=== PATIENT | male | born 1955 | race Caucasian/White ===

== ENCOUNTER 2020-10-08 19:05 | Inpatient (IN) | payer MEDICARE, OTHER ==
[~2020-10-08] VITALS: Ht 180.3 cm; Wt 132.8 kg
[2020-10-08] MEDS ORDERED: LIPITOR40 M1 PO (20:01)
[2020-10-08 20:02] LABS: IMMATURE GRANULOCYTES 0.5 % (0.0-5.0); MEAN CELL VOLUME 90.6 fL CALC (80.0-100.0); MEAN CORPUSCULAR HGB 28.5 pG CALC (26.0-32.0); MEAN CORPUSCULAR HGB CONC 31.4 g/dL CAL (32.0-36.0); NEUT# 3.28 thou/uL (1.82-7.42); RED BLOOD COUNT 4.46 mill/uL (4.70-6.10); RED CELL DISTRI WIDTH 16.2 % (11.5-15.5)
[2020-10-08] MEDS ORDERED: HYDROCHLOROT25 MG PO (20:03)
[2020-10-08] MEDS ORDERED: HUMALOG KW100 UNIT/M (20:03)
[2020-10-08] MEDS ORDERED: INVOKANA300 MG PO (20:04)
[2020-10-08] MEDS ORDERED: ISOSORB MONO30 MG PO (20:05)
[2020-10-08] MEDS ORDERED: LANTUS SOL100 UNIT/M SC (20:06)
[2020-10-08 20:07] LABS: ALBUMIN 3.8 g/dL (3.2-5.0); ALKALINE PHOSPHATASE 203 u/l (38-126); AMYLASE 65 u/l (30-110); ANION GAP 10 (6-22 (CALC)); BUN 19 mg/dL (8-23); BUN/CREATININE RATIO 22 (12-20 (CALC)); CARBON DIOXIDE 25 mmol/l (22-30); CHLORIDE 111 mmol/l (95-108); CREATININE 0.9 mg/dL (0.7-1.3); GFR > 60 ML/MIN (>=60 (CALC)); GFR FOR AFR.AMER. > 60 ML/MIN (>=60 (CALC)); LIPASE 142 u/l (23-300); POTASSIUM 4.2 mmol/l (3.5-5.1); SGOT/AST 64 u/l (19-48); SODIUM 141 mmol/l (137-146); TOTAL PROTEIN 7.4 g/dL (6.3-8.2)
[2020-10-08] MEDS ORDERED: ZOLPIDEM10 MG PO (20:07)
[2020-10-08] MEDS ORDERED: TOPROL XL50 MG PO (20:07)
[2020-10-08] MEDS ORDERED: OMEPRAZOLE DR40 MG PO (20:08)
[2020-10-08] MEDS ORDERED: DIOVAN160 MG PO (20:08)
[2020-10-08 20:09] LABS: HEMATOCRIT 40.4 % (39.0-50.0); HEMOGLOBIN 12.7 g/dl (14.0-18.0)
[2020-10-08 20:48] LABS: URINE BILIRUBIN - DIPSTICK NEGATIVE (NEGATIVE); URINE BLOOD DIPSTICK NEGATIVE (NEGATIVE); URINE COLOR YELLOW; URINE GLUCOSE - DIPSTICK >=1000 mg/dL (NEGATIVE); URINE KETONE TRACE mg/dL (NEGATIVE); URINE LEUK ESTERASE NEGATIVE (NEGATIVE); URINE NITRITE - DIPSTICK NEGATIVE (Negative); URINE PH 5.5 (4.5-8.0); URINE PROTEIN - DIPSTICK NEGATIVE (NEG-TRACE); URINE SPECIFIC GRAVITY 1.015; URINE UROBILINOGEN - DIPSTICK 0.2 E.U./dL (0.2)
[2020-10-09 02:18] VITALS: BP 173/72
[2020-10-09 04:20] VITALS: BP 159/73
[2020-10-09 07:59] VITALS: BP 137/54
[2020-10-09 11:16] VITALS: BP 140/63
[2020-10-09 14:34] VITALS: BP 131/61
[2020-10-10 04:00] VITALS: BP 132/64
[2020-10-10 06:18] LABS: HEMOGLOBIN 11.9 g/dl (14.0-18.0); IMMATURE GRANULOCYTES 0.4 % (0.0-5.0); MEAN CELL VOLUME 92.6 fL CALC (80.0-100.0); MEAN CORPUSCULAR HGB 28.3 pG CALC (26.0-32.0); MEAN CORPUSCULAR HGB CONC 30.5 g/dL CAL (32.0-36.0); NEUT# 3.12 thou/uL (1.82-7.42); RED BLOOD COUNT 4.21 mill/uL (4.70-6.10); RED CELL DISTRI WIDTH 16.3 % (11.5-15.5)
[2020-10-10 06:40] LABS: ALBUMIN 3.1 g/dL (3.2-5.0); ALKALINE PHOSPHATASE 121 u/l (38-126); ANION GAP 9 (6-22 (CALC)); BILIRUBIN, TOTAL 1.4 mg/dL (0.0-1.4); BUN 16 mg/dL (8-23); BUN/CREATININE RATIO 19 (12-20 (CALC)); CARBON DIOXIDE 26 mmol/l (22-30); CHLORIDE 109 mmol/l (95-108); CREATININE 0.8 mg/dL (0.7-1.3); GFR > 60 ML/MIN (>=60 (CALC)); GFR FOR AFR.AMER. > 60 ML/MIN (>=60 (CALC)); POTASSIUM 3.9 mmol/l (3.5-5.1); SGOT/AST 46 u/l (19-48); SODIUM 139 mmol/l (137-146); TOTAL PROTEIN 6.1 g/dL (6.3-8.2)
[2020-10-10 07:57] VITALS: BP 125/58
[2020-10-10 15:28] VITALS: BP 120/49
[2020-10-10 20:00] VITALS: BP 121/50
[2020-10-11 04:00] VITALS: BP 108/52
[2020-10-11 05:42] LABS: HEMATOCRIT 35.1 % (39.0-50.0); HEMOGLOBIN 10.7 g/dl (14.0-18.0); IMMATURE GRANULOCYTES 0.3 % (0.0-5.0); MEAN CELL VOLUME 93.4 fL CALC (80.0-100.0); MEAN CORPUSCULAR HGB 28.5 pG CALC (26.0-32.0); MEAN CORPUSCULAR HGB CONC 30.5 g/dL CAL (32.0-36.0); NEUT# 2.61 thou/uL (1.82-7.42); RED BLOOD COUNT 3.76 mill/uL (4.70-6.10)
[2020-10-11 06:05] LABS: ALBUMIN 2.8 g/dL (3.2-5.0); ALKALINE PHOSPHATASE 107 u/l (38-126); ANION GAP 7 (6-22 (CALC)); BILIRUBIN, TOTAL 1.1 mg/dL (0.0-1.4); BUN 17 mg/dL (8-23); BUN/CREATININE RATIO 21 (12-20 (CALC)); CARBON DIOXIDE 26 mmol/l (22-30); CHLORIDE 107 mmol/l (95-108); CREATININE 0.8 mg/dL (0.7-1.3); GFR > 60 ML/MIN (>=60 (CALC)); GFR FOR AFR.AMER. > 60 ML/MIN (>=60 (CALC)); POTASSIUM 3.6 mmol/l (3.5-5.1); SGOT/AST 43 u/l (19-48); SODIUM 137 mmol/l (137-146); TOTAL PROTEIN 5.6 g/dL (6.3-8.2)
[2020-10-11 07:45] VITALS: BP 150/70
[2020-10-11 15:10] VITALS: BP 117/57
[2020-10-11 19:42] VITALS: BP 122/57
[2020-10-12 03:56] VITALS: BP 126/60
[2020-10-12 07:59] VITALS: BP 132/59
[2020-10-12 14:55] VITALS: BP 117/51
== END 2020-10-12 18:00 | disposition short-term general hospital (02) | DRG 446 ==
LOC: ED 19:05 → ED-I 23:57 → ED 10-09 00:48 → MS2 10-09 00:49
PROVIDERS: Emergency Medicine; Nurse Practitioner; ADMIT Internal Medicine; ATTEND Internal Medicine
DX: K80.00 Calculus of gallbladder with acute cholecystitis without obstruction (principal); D69.6 Thrombocytopenia, unspecified; K74.60 Unspecified cirrhosis of liver; R16.1 Splenomegaly, not elsewhere classified; I10 Essential (primary) hypertension; E11.9 Type 2 diabetes mellitus without complications; I25.10 Atherosclerotic heart disease of native coronary artery without angina pectoris; E78.5 Hyperlipidemia, unspecified; K21.9 Gastro-esophageal reflux disease without esophagitis; Z79.4 Long term (current) use of insulin; Z95.5 Presence of coronary angioplasty implant and graft; Z20.822 Contact with and (suspected) exposure to COVID-19
CPT/HCPCS: J1610; Q9967; S0164

== ENCOUNTER 2020-12-31 | Emergency (ER) | payer MEDICARE, OTHER ==
[~2020-12-31] MED LIST: DIOVAN160 MG PO; HUMALOG KW100 UNIT/M; HYDROCHLOROT25 MG PO; INVOKANA300 MG PO; ISOSORB MONO30 MG PO; LANTUS SOL100 UNIT/M SC; LIPITOR40 M1 PO; OMEPRAZOLE DR40 MG PO; TOPROL XL50 MG PO; ZOLPIDEM10 MG PO
[2020-12-31] MEDS ORDERED: LORTAB 1010 MG PO (10:48)
[2020-12-31] MEDS ORDERED: CYCLOBENZAPRINE10 MG PO (10:48)
== END 2020-12-31 11:00 | disposition home or self-care (01) ==
DX: M47.816 Spondylosis without myelopathy or radiculopathy, lumbar region (principal); I10 Essential (primary) hypertension; E11.9 Type 2 diabetes mellitus without complications; I25.10 Atherosclerotic heart disease of native coronary artery without angina pectoris; Z79.4 Long term (current) use of insulin

== ENCOUNTER 2023-10-10 08:08 | Emergency (ER) | payer MEDICARE, OTHER ==
[~2023-10-10] VITALS: Ht 177.8 cm; Wt 119.2 kg
[2023-10-10] VITALS (24 sets, daily range): BP systolic 113–164; BP diastolic 50–69
[~2023-10-10 08:08] MED LIST changes: +ADVANCED FIBER COMPL PO; +ALDACTONE25 MG PO; +AMBIEN10 MG PO; +CONSTULOSE10 GM/15 M PO; +CRESTOR20 MG PO; +CYCLOBENZAPRINE10 MG PO; +DEMADEX20 MG PO; +LORTAB 1010 MG PO; +MGO PO; +POT CHLORIDE10 ME5 PO; +PROBIOTI2; +SODIUM BICARBI650 MG PO; +TOPROL XL25 M1 PO
[2023-10-10 08:37] LABS: BASO% 0.5 % (0-3); EOS% 7.6 % (0-8); HEMATOCRIT 36.2 % (39.0-50.0); HEMOGLOBIN 11.7 g/dl (14.0-18.0); IMMATURE GRANULOCYTES 0.3 % (0.0-5.0); LYMPH% 10.9 % (15-41); MEAN CORPUSCULAR HGB 27.5 pG CALC (26.0-32.0); MEAN CORPUSCULAR HGB CONC 32.3 g/dL CAL (32.0-36.0); MONO% 9.4 % (2-13); NEUT# 2.74 thou/uL (1.82-7.42); NEUT% 71.3 % (42-76); RED BLOOD COUNT 4.26 mill/uL (4.70-6.10); RED CELL DISTRI WIDTH 20.1 % (11.5-15.5)
[2023-10-10 08:49] LABS: ALBUMIN 2.7 g/dL (3.2-5.0); ALKALINE PHOSPHATASE 309 u/l (38-126); ANION GAP 8 (6-22 (CALC)); BILIRUBIN, TOTAL 1.7 mg/dL (0.2-1.3); BUN 20 mg/dL (8-23); BUN/CREATININE RATIO 17 (12-20 (CALC)); CARBON DIOXIDE 24 mmol/l (22-30); CHLORIDE 108 mmol/l (95-108); CPK 106 u/l (55-170); CREATININE 1.2 mg/dL (0.7-1.3); ETHYL ALCOHOL 0 mg/dl (0-30); GFR FOR AFR.AMER. > 60 ML/MIN (>=60 (CALC)); GFR OTHER RACES 60 ML/MIN (>=60 (CALC)); LIPASE 239 u/l (23-300); MAGNESIUM 2.6 mg/dL (1.6-2.3); SGOT/AST 73 u/l (19-48); SODIUM 136 mmol/l (137-146); TOTAL PROTEIN 6.3 g/dL (6.3-8.2)
[2023-10-10 08:50] LABS: INTERNATIONAL NORMALIZED RATIO 1.3 RATIO (0.7-1.3); PROTHROMBIN TIME 12.7 SECONDS (9.0-12.5)
[2023-10-10 12:04] LABS: URINE BILIRUBIN - DIPSTICK Negative (NEGATIVE); URINE BLOOD DIPSTICK Negative (NEGATIVE); URINE GLUCOSE - DIPSTICK 500 mg/dL (NEGATIVE); URINE KETONE Negative (NEGATIVE); URINE LEUK ESTERASE Negative (NEGATIVE); URINE NITRITE - DIPSTICK Negative (Negative); URINE PH 5.5 (4.5-8.0); URINE PROTEIN - DIPSTICK Negative (NEG-TRACE); URINE SPECIFIC GRAVITY 1.015; URINE UROBILINOGEN - DIPSTICK 0.2 E.U./dL (0.2)
[2023-10-10 12:06] LABS: URINE COLOR Yellow
--- NOTE | 2023-10-11 13:59 | NUR ---
Preliminary blood culture result shows gram positive cocci on 2/4 samples. Results was called and faxed to Taniya, nurse in charge of the patient on [facility].
== END 2023-10-10 14:15 ==
LOC: ED 08:08
PROVIDERS: Family Medicine
PROC: 05HM33Z Insertion of Infusion Device into Right Internal Jugular Vein, Percutaneous Approach (ICD-10-PCS; principal; 2023-10-10)
PROC: 0T9B70Z Drainage of Bladder with Drainage Device, Via Natural or Artificial Opening (ICD-10-PCS; 2023-10-10)
PROC: 0BH17EZ Insertion of Endotracheal Airway into Trachea, Via Natural or Artificial Opening (ICD-10-PCS; 2023-10-10)
PROC: 5A1935Z Respiratory Ventilation, Less than 24 Consecutive Hours (ICD-10-PCS; 2023-10-10)
DX: K76.82 Hepatic encephalopathy (principal); J18.9 Pneumonia, unspecified organism; I85.01 Esophageal varices with bleeding; I10 Essential (primary) hypertension; K21.9 Gastro-esophageal reflux disease without esophagitis; E78.5 Hyperlipidemia, unspecified; C22.9 Malignant neoplasm of liver, not specified as primary or secondary; Z95.5 Presence of coronary angioplasty implant and graft; E11.9 Type 2 diabetes mellitus without complications; I25.10 Atherosclerotic heart disease of native coronary artery without angina pectoris; Z79.4 Long term (current) use of insulin; Z20.822 Contact with and (suspected) exposure to COVID-19
CPT/HCPCS: J2354; Q9967; S0164

== ENCOUNTER 2024-03-19 16:03 | Observation (INO) | payer MEDICARE, OTHER ==
[~2024-03-19] VITALS: Ht 177.8 cm; Wt 104.6 kg
[2024-03-19] VITALS (31 sets, daily range): BP systolic 74–109; BP diastolic 27–57
--- NOTE | 2024-03-19 16:17 | NUR ---
PATIENT TO ROOM 9 VIA WHEELCHAIR
[2024-03-19] MEDS ORDERED: SODIUM CHLORIDE 0.9% 500 ML IV ONE (16:25)
--- NOTE | 2024-03-19 16:30 | NUR ---
PATIENT ARRIVED BY POV. PATIENT HAS C/O WEAKNESS AND FATIGUE. PARATHENTISIS SCHEDUALED FOR TOMMOROW, HOWEVER PATIENT WAS FEELING TO BAD TO WAIT. IV ACCESS STABLISHED. DR. BRIDGES AT THE BEDSIDE.
[2024-03-19 16:49] LABS: BASO% 0.2 % (0-3); EOS% 0.7 % (0-8); HEMATOCRIT 37.6 % (39.0-50.0); HEMOGLOBIN 12.2 g/dl (14.0-18.0); IMMATURE GRANULOCYTES 0.5 % (0.0-5.0); LYMPH% 3.3 % (15-41); MEAN CORPUSCULAR HGB 32.7 pG CALC (26.0-32.0); MEAN CORPUSCULAR HGB CONC 32.4 g/dL CAL (32.0-36.0); MONO% 6.7 % (2-13); NEUT# 7.28 thou/uL (1.82-7.42); NEUT% 88.6 % (42-76); RED BLOOD COUNT 3.73 mill/uL (4.70-6.10); RED CELL DISTRI WIDTH 18.4 % (11.5-15.5)
[2024-03-19 16:52] LABS: MEAN CELL VOLUME 100.8 fL CALC (80.0-100.0)
[2024-03-19 16:59] LABS: INTERNATIONAL NORMALIZED RATIO 1.5 RATIO (0.7-1.3)
[2024-03-19] MEDS ORDERED: ZINC50 M1 PO (17:00)
[2024-03-19 17:01] LABS: PROTHROMBIN TIME 13.6 SECONDS (9.0-12.5)
[2024-03-19 17:02] LABS: ALBUMIN 2.7 g/dL (3.2-5.0); BILIRUBIN, TOTAL 6.2 mg/dL (0.2-1.3); CREATININE 2.3 mg/dL (0.7-1.3); TOTAL PROTEIN 6.3 g/dL (6.3-8.2)
[2024-03-19] MEDS ORDERED: CALCIUM GLUCONATE 2 GM in SODIUM CHLORIDE 0.9% 100 ML IV ONE (17:10)
[2024-03-19] MEDS ORDERED: CALCIUM GLUCONATE 1 GM in SODIUM CHLORIDE 0.9% 50 ML IV ONE (17:10)
[2024-03-19] MEDS ORDERED: INSULIN REGULAR (HUMAN) 100 UNIT/ML INJ IV ONE (17:10)
[2024-03-19] MEDS ORDERED: cefTRIAXone SODIUM 2 GM in SODIUM CHLORIDE 0.9% 100 ML IV ONE (17:10)
[2024-03-19] MEDS ORDERED: SODIUM CHLORIDE 0.9% 1,000 ML IV ONE ×2 (17:10→19:00)
[2024-03-19] MEDS ORDERED: DEXTROSE 10% 500 ML BAG IV ONE (17:20)
--- NOTE | 2024-03-19 18:39 | NUR ---
PATIENT RECIEVED DEXTROSE BOLUS. LITER OF IV FLUID INFUSING.
--- NOTE | 2024-03-19 19:10 | NUR ---
REPORT RECEIVED FROM Renetta THRASHER RN
[2024-03-19 19:43] LABS: CREATININE 2.2 mg/dL (0.7-1.3)
--- NOTE | 2024-03-19 20:00 | NUR ---
PATIENT RESTING IN BED, AT BEDSIDE.
[2024-03-19 21:32] LABS: URINE BLOOD DIPSTICK Small (NEGATIVE); URINE GLUCOSE - DIPSTICK Negative (NEGATIVE); URINE KETONE Negative (NEGATIVE); URINE NITRITE - DIPSTICK Negative (Negative); URINE PROTEIN - DIPSTICK Trace mg/dL (NEG-TRACE); URINE UROBILINOGEN - DIPSTICK 0.2 E.U./dL (0.2)
[2024-03-19 21:35] LABS: URINE COLOR Dark yellow; URINE LEUK ESTERASE Small (NEGATIVE)
[2024-03-19] MEDS ORDERED: MAGNESIUM HYDROXIDE 30 ML UDC PO PRN (22:00)
[2024-03-19] MEDS ORDERED: SODIUM CHLORIDE 0.9% 1,000 ML IV PRN (22:00)
--- NOTE | 2024-03-19 22:45 | NUR ---
PATIENT RESTING IN BED, NO APPARENT DISTRESS NOTED. CALL LIGHT AND BEDSIDE TABLE WITHIN REACH.
--- NOTE | 2024-03-19 23:14 | NUR ---
REPORT CALLED TO OKSANA HEREDIA
--- NOTE | 2024-03-19 23:20 | NUR ---
PATIENT TRASNPORTED TO ROOM 279
--- NOTE | 2024-03-19 23:52 | NUR ---
RECEIVED FROM ER AWAKE, ALERT. ORIENTED X4. ASSISTED OFF STRETCHER TO BED. ATBEDSIDE. ORIENTED TO ROOM, CALL DAS AND PLAN OF CARE. VOICED UNDERSTANDING
[2024-03-20] MEDS ORDERED: SODIUM BICAR650 MG PO (00:58)
[2024-03-20] MEDS ORDERED: OMEPRAZOLE DR20 MG PO (00:58)
[2024-03-20] MEDS ORDERED: XIFAXAN550 MG PO (00:58)
[2024-03-20] MEDS ORDERED: TOPROL XL25 MG PO (00:59)
[2024-03-20] MEDS ORDERED: LACTULOSE10 GM/15 M (00:59)
[2024-03-20] MEDS ORDERED: POTASSIUM CHLO10 MEQ PO (00:59)
[2024-03-20] MEDS ORDERED: OXYCODONE HCL10 MG PO (00:59)
[2024-03-20] MEDS ORDERED: ROSUVASTATIN CA10 MG PO (00:59)
[2024-03-20] MEDS ORDERED: LOTRISONE CREAM15 G1 EX (01:00)
--- NOTE | 2024-03-20 04:00 | NUR ---
RESTING IN BEDD WITH EYES CLOSED. NO C/O PAIN OR DISCOMFORT. ADMISSION ASSESSMENT COMPLETED. HAS A SMALL SKIN TEAR ON OUTER SIDE OF LEFT ELBOW AREA. SCATTERED DISCOLORED AREAS ON BILAT ARMS. ABDOMEN LARGE ROUND, BUT SOFT. ACTIVE BOWEL SOUNDS IN ALL QUADRANTS. HYPERACTIVE IN LEFT UPPER. SLIGHT EXPIRATORY WHEEZING IN BILAT UPPER LOBES OF LUNGS
[2024-03-20 04:38] VITALS: BP 99/54
[2024-03-20 06:24] LABS: BASO% 0.4 % (0-3); EOS% 1.3 % (0-8); HEMOGLOBIN 10.5 g/dl (14.0-18.0); IMMATURE GRANULOCYTES 0.4 % (0.0-5.0); LYMPH% 4.4 % (15-41); MEAN CELL VOLUME 97.8 fL CALC (80.0-100.0); MEAN CORPUSCULAR HGB 33.5 pG CALC (26.0-32.0); MEAN CORPUSCULAR HGB CONC 34.3 g/dL CAL (32.0-36.0); MONO% 8.6 % (2-13); NEUT# 4.42 thou/uL (1.82-7.42); NEUT% 84.9 % (42-76); RED BLOOD COUNT 3.13 mill/uL (4.70-6.10); RED CELL DISTRI WIDTH 18.3 % (11.5-15.5)
[2024-03-20 06:28] LABS: ALBUMIN 2.2 g/dL (3.2-5.0); BILIRUBIN, TOTAL 4.4 mg/dL (0.2-1.3); CHOLESTEROL HDL RATIO 3.5 (<4.4 (CALC)); MAGNESIUM 2.2 mg/dL (1.6-2.3); POTASSIUM 4.8 mmol/l (3.5-5.1); TOTAL PROTEIN 5.3 g/dL (6.3-8.2)
[2024-03-20 06:31] LABS: HEMATOCRIT 30.6 % (39.0-50.0)
[2024-03-20] MEDS ORDERED: INSULIN LISPRO 100 UNITS/ML ML SC SCH (07:00)
--- NOTE | 2024-03-20 07:15 | NUR ---
REPORT RECEIVED FROM PARIRN
[2024-03-20 07:16] VITALS: BP 93/48
[2024-03-20] MEDS ORDERED: INSULIN DETEMIR 100 UNITS/ML SC SCH (09:00)
[2024-03-20] MEDS ORDERED: PANTOPRAZOLE SODIUM Sesquihydr 40 MG/TAB PO SCH (09:00)
[2024-03-20] MEDS ORDERED: LACTULOSE 20 GM/30 ML UDC PO SCH (09:00)
[2024-03-20] MEDS ORDERED: SPIRONOLACTONE 25 MG/TAB PO SCH (09:00)
[2024-03-20] MEDS ORDERED: SODIUM BICARBONATE 650 MG TAB PO SCH (09:00)
[2024-03-20 09:14] VITALS: BP 91/45
[2024-03-20] MEDS ORDERED: ALBUMIN 25% (12.5GM/50 ML) VIAL IV SCH (09:30)
--- NOTE | 2024-03-20 09:40 | NUR ---
PT RESTING AT BEDSIDE,A&O X3;VS OBTAINED AND ASSESSMENT COMPLETED;RESPIRATIONS EVEN AND UNLABORED ON RA,CLEAR LUNG SOUNDS;ABDOMEN SOFT ON PALPATION AND ACTIVE IN ALL 4 QUADRANTTS;WEAK PEDAL PULSES;SKIN TEAR NOTED TO LEFT ARM X2 AND RT KNEE, SITES CLEANSED AND DRESSED/PHOTOGRAPHS PLACED IN CHART;#20G TO RAC INFUSING NS @ 80ML/HR,SITE APPEARS HEALTHY;TELE MONITORING IN PLACE;ACCUCHECK 112, PT REFUSED SCHEDULED LEVEMIR AT THIS TIME;PT DENIES ANY ADDITIONAL NEEDS AND IS ENCOURAGED TO CALL FOR ASSISTANCE IF NEEDED;FALL PRECAUTIONS IN PLACE WITH BED IN THE LOWEST POSITION AND CALL LIGHT IN REACH;FREQUENT ROUNDS MADE.
--- NOTE | 2024-03-20 10:26 | NUR ---
AT BEDSIDE DISCUSSING POC WITH PT.
[2024-03-20 11:36] VITALS: BP 92/47
--- NOTE | 2024-03-20 12:00 | NUR ---
PT RESTING IN SEMI FOWLERS POSITION,A&O X3;RESPIRATIONS REMAIN EVEN AND UNLABORED ON RA;#22G REMOVED FROM RAC DUE TO LEAKING, NEW #22G STARTED TO LW ON 1ST ATTEMPT BY THIS WRITTER;PT DENIES ANY CURRENT PAIN OR NEEDS;TELE MONITORING IN PLACE;ACCUCHECK 139, NO COVERAGE NEEDED;ENCOURAGED TO CALL FOR ASSISTANCE IF NEEDED;CALL LIGHT IN REACH;FREQUENT ROUNDS MADE.
[2024-03-20] MEDS ORDERED: PATIENT' OWN MED 1 EA DOSE PO PRN (12:05)
[2024-03-20 16:45] VITALS: BP 97/48
--- NOTE | 2024-03-20 16:50 | NUR ---
PT RESTING IN SEMI FOWLERS POSITION;RESPIRATIONS EVEN AND UNLABORED ON RA;PT DENIES ANY CURRENT PAIN OR DISCOMFORTS;TELE MONITORING IN PLACE;IV SITE TO LW REMAINS PATENT AND ABX STARTED AT THIS TIME;ACCUCHECK 139, NO COVERAGE NEEDED;PT ENCOURAGED TO CALL FOR ASSISTANCE IF NEEDED;CALL LIGHT IN REACH;FREQUENT ROUNDS MADE.
[2024-03-20] MEDS ORDERED: cefTRIAXone SODIUM 2 GM in SODIUM CHLORIDE 0.9% 100 ML IV SCH (17:00)
--- NOTE | 2024-03-20 19:15 | NUR ---
PATIENT APPEARS RESTING IN BED. AT BEDSIDE. ALERT AND ABLE TO MAKE NEEDS KNOWN. ASSESSMENT COMPLETE. NO COMPLAINTS OF PAIN VOICED AT THIS TIME. NO DISTRESS NOTED. DRESSINGS OBSERVED TO LEFT ARM AND RIGHT LEG. DENIES NEEDING ANYTHING AT THIS TIME.
[2024-03-20 19:24] VITALS: BP 96/54
--- NOTE | 2024-03-20 22:47 | NUR ---
INFORMED DATA ENTRY SUPERVISOR PROVIDER OF PATIENT AND HAVING LIST OF HIS MEDICATIONS THAT THEY WANT REVIEWED IN THE MORNING.
--- NOTE | 2024-03-20 22:47 | NUR ---
INFORMED CUSTOMER RELATIONS ASSISTANT DURING PHONE CALL THAT PATIENT REFUSED 2100 MEDS MINUS THE SLIDING SCALE.
--- NOTE | 2024-03-21 00:30 | NUR ---
PATIENT REMAINS RESTING IN BED ON HIS LEFT SIDE. NO DISTRESS NOTED. NO COMPLAINTS VOICED. BED REMAINS IN LOW POSITION. ENCOURAGED PATIENT TO USE CALL DAS WHEN NEEDING ASSISTANCE.
[2024-03-21 00:38] VITALS: BP 88/46
[2024-03-21 01:13] VITALS: BP 98/43
[2024-03-21 04:15] VITALS: BP 101/46
--- NOTE | 2024-03-21 04:30 | NUR ---
PATIENT REMAINS RESTING IN BED. DENIES NEEDING ANYTHING AT THIS TIME. BED REMAINS IN LOW POSITION. CALL DAS IN REACH.
[2024-03-21 06:11] LABS: BASO% 0.6 % (0-3); EOS% 1.7 % (0-8); HEMATOCRIT 27.6 % (39.0-50.0); HEMOGLOBIN 9.3 g/dl (14.0-18.0); IMMATURE GRANULOCYTES 0.3 % (0.0-5.0); MEAN CELL VOLUME 101.1 fL CALC (80.0-100.0); MEAN CORPUSCULAR HGB 34.1 pG CALC (26.0-32.0); MEAN CORPUSCULAR HGB CONC 33.7 g/dL CAL (32.0-36.0); NEUT# 2.86 thou/uL (1.82-7.42); NEUT% 83.4 % (42-76); RED BLOOD COUNT 2.73 mill/uL (4.70-6.10); RED CELL DISTRI WIDTH 18.6 % (11.5-15.5)
[2024-03-21 06:48] LABS: ALBUMIN 2.1 g/dL (3.2-5.0); CREATININE 1.7 mg/dL (0.7-1.3); MAGNESIUM 2.1 mg/dL (1.6-2.3); TOTAL PROTEIN 4.7 g/dL (6.3-8.2)
[2024-03-21 07:23] VITALS: BP 91/42
[2024-03-21] MEDS ORDERED: TECENTRIQ (07:43)
[2024-03-21 09:59] LABS: HEMATOCRIT 29.7 % (39.0-50.0)
--- NOTE | 2024-03-21 12:13 | NUR ---
Discharge instructions given. Patient verbalizes understanding of same. Discharged in stable condition via Wheelchair to Home with family. All belongings sent with pt. IV REMOVED, CATHETER INTACT, SITE WNL.
--- NOTE | 2024-03-21 12:21 | NUR ---
Patient resting in bed, bed locked and low. Call light within reach. No apparent distress observed or reported by patient. Plan of care reviewed with patient, questions encouraged and answered to best ability within scope of practice. No further questions at this time. Patient encouraged to call if any needs were to arise. Will continue to monitor.
== END 2024-03-21 13:11 | disposition home health service (06) ==
LOC: ED 16:03 → ED-I 17:35 → ED 21:51 → MS2 21:52
PROVIDERS: Family Medicine; Nurse Practitioner Family; ADMIT Student in an Organized Health Care Education/Training Program; ATTEND Student in an Organized Health Care Education/Training Program
PROC: 0W9G3ZZ Drainage of Peritoneal Cavity, Percutaneous Approach (ICD-10-PCS; principal; 2024-03-20)
DX: E87.1 Hypo-osmolality and hyponatremia (principal); E87.5 Hyperkalemia; E87.20 Acidosis, unspecified; C22.0 Liver cell carcinoma; K74.60 Unspecified cirrhosis of liver; R18.8 Other ascites; K76.6 Portal hypertension; N17.9 Acute kidney failure, unspecified; I12.9 Hypertensive chronic kidney disease with stage 1 through stage 4 chronic kidney disease, or unspecified chronic kidney disease; E11.22 Type 2 diabetes mellitus with diabetic chronic kidney disease; N18.9 Chronic kidney disease, unspecified; K21.9 Gastro-esophageal reflux disease without esophagitis; I25.10 Atherosclerotic heart disease of native coronary artery without angina pectoris; E66.9 Obesity, unspecified; Z79.4 Long term (current) use of insulin; Z95.5 Presence of coronary angioplasty implant and graft; Z68.33 Body mass index [BMI] 33.0-33.9, adult; Z79.60 Long term (current) use of unspecified immunomodulators and immunosuppressants; Z20.822 Contact with and (suspected) exposure to COVID-19
CPT/HCPCS: P9047

== ENCOUNTER 2024-05-09 10:18 | Observation (INO) | payer MEDICARE, OTHER ==
[~2024-05-09] VITALS: Ht 177.8 cm; Wt 99.4 kg
[2024-05-09] VITALS (26 sets, daily range): BP systolic 86–122; BP diastolic 38–60
[~2024-05-09 10:18] MED LIST changes: +LACTULOSE10 GM/15 M; +LOTRISONE CREAM15 G1 EX; +OMEPRAZOLE DR20 MG PO; +OXYCODONE HCL10 MG PO; +POTASSIUM CHLO10 MEQ PO; +ROSUVASTATIN CA10 MG PO; +SODIUM BICAR650 MG PO; +TECENTRIQ; +TOPROL XL25 MG PO; +XIFAXAN550 MG PO; +ZINC50 M1 PO
[2024-05-09 10:47] LABS: BASO% 0.4 % (0-3); EOS% 0.8 % (0-8); HEMATOCRIT 31.6 % (39.0-50.0); HEMOGLOBIN 10.3 g/dl (14.0-18.0); IMMATURE GRANULOCYTES 0.4 % (0.0-5.0); LYMPH% 3.7 % (15-41); MEAN CELL VOLUME 98.4 fL CALC (80.0-100.0); MEAN CORPUSCULAR HGB 32.1 pG CALC (26.0-32.0); MEAN CORPUSCULAR HGB CONC 32.6 g/dL CAL (32.0-36.0); MONO% 6.4 % (2-13); NEUT# 4.52 thou/uL (1.82-7.42); NEUT% 88.3 % (42-76); RED BLOOD COUNT 3.21 mill/uL (4.70-6.10); RED CELL DISTRI WIDTH 15.6 % (11.5-15.5)
[2024-05-09] MEDS ORDERED: OXYCODONE5 M1 PO (10:51)
[2024-05-09 11:05] LABS: ALKALINE PHOSPHATASE 507 u/l (38-126); ANION GAP 13 (6-22 (CALC)); BILIRUBIN, TOTAL 3.1 mg/dL (0.2-1.3); BUN 44 mg/dL (8-23); BUN/CREATININE RATIO 32 (12-20 (CALC)); CARBON DIOXIDE 13 mmol/l (22-30); CHLORIDE 109 mmol/l (95-108); CPK 42 u/l (55-170); CREATININE 1.4 mg/dL (0.7-1.3); ESTIMATED GFR 54 ML/MIN (>=90 (CALC)); LIPASE 115 u/l (23-300); POTASSIUM 4.1 mmol/l (3.5-5.1); SGOT/AST 54 u/l (19-48); SODIUM 131 mmol/l (137-146); TOTAL PROTEIN 5.8 g/dL (6.3-8.2)
[2024-05-09] MEDS ORDERED: POTASSIUM CHLORIDE 20 MEQ/TAB PO ONE (13:59)
[2024-05-09] MEDS ORDERED: SODIUM CHLORIDE 0.9% 1,000 ML IV ONE (14:00)
[2024-05-09] MEDS ORDERED: LACTULOSE 20 GM/30 ML UDC ONE (14:00)
[2024-05-09] MEDS ORDERED: SODIUM CHLORIDE 0.9% 1,000 ML IV PRN (17:30)
[2024-05-09] MEDS ORDERED: SODIUM CHLORIDE 0.9% 500 ML IV ONE (17:35)
[2024-05-09] MEDS ORDERED: ACETAMINOPHEN 325 MG/TAB PO PRN (21:00)
[2024-05-09] MEDS ORDERED: LACTULOSE 20 GM/30 ML UDC PO SCH (21:00)
[2024-05-09] MEDS ORDERED: MAGNESIUM HYDROXIDE 30 ML UDC PO PRN (21:00)
[2024-05-09] MEDS ORDERED: INSULIN LISPRO 100 UNITS/ML ML SC SCH (21:00)
[2024-05-09] MEDS ORDERED: MIDODRINE HCL 5 MG TAB PO SCH (21:00)
[2024-05-09] MEDS ORDERED: oxyCODONE HCL 5 MG/TAB PO PRN (23:20)
[2024-05-10] VITALS (11 sets, daily range): BP systolic 95–113; BP diastolic 52–61
[2024-05-10 04:09] LABS: BASO% 0.3 % (0-3); EOS% 2.3 % (0-8); HEMATOCRIT 26.4 % (39.0-50.0); HEMOGLOBIN 8.6 g/dl (14.0-18.0); IMMATURE GRANULOCYTES 0.6 % (0.0-5.0); LYMPH% 5.4 % (15-41); MEAN CELL VOLUME 100.4 fL CALC (80.0-100.0); MEAN CORPUSCULAR HGB 32.7 pG CALC (26.0-32.0); MEAN CORPUSCULAR HGB CONC 32.6 g/dL CAL (32.0-36.0); MONO% 9.1 % (2-13); NEUT# 2.9 thou/uL (1.82-7.42); NEUT% 82.3 % (42-76); RED BLOOD COUNT 2.63 mill/uL (4.70-6.10); RED CELL DISTRI WIDTH 15.8 % (11.5-15.5)
[2024-05-10 04:31] LABS: BILIRUBIN, TOTAL 3.1 mg/dL (0.2-1.3); CHOLESTEROL HDL RATIO 2.2 (<4.4 (CALC)); CREATININE 1.3 mg/dL (0.7-1.3); POTASSIUM 4.4 mmol/l (3.5-5.1); TOTAL PROTEIN 4.9 g/dL (6.3-8.2)
[2024-05-10 04:35] LABS: ALBUMIN 2.3 g/dL (3.2-5.0); MAGNESIUM 3.2 mg/dL (1.6-2.3)
[2024-05-10] MEDS ORDERED: SODIUM BICARBONATE 650 MG TAB PO SCH (09:00)
[2024-05-10] MEDS ORDERED: PANTOPRAZOLE SODIUM Sesquihydr 40 MG/TAB PO SCH (09:00)
[2024-05-10] MEDS ORDERED: LACTULOSE 20 GM/30 ML UDC PO SCH (09:00)
[2024-05-10 10:28] LABS: URINE BLOOD DIPSTICK Large (NEGATIVE); URINE GLUCOSE - DIPSTICK Negative (NEGATIVE); URINE KETONE Negative (NEGATIVE); URINE NITRITE - DIPSTICK Negative (Negative); URINE PH 5.5 (4.5-8.0); URINE PROTEIN - DIPSTICK Negative (NEG-TRACE); URINE SPECIFIC GRAVITY 1.015; URINE UROBILINOGEN - DIPSTICK 0.2 E.U./dL (0.2)
[2024-05-10 10:30] LABS: URINE COLOR Yellow; URINE LEUK ESTERASE Small (NEGATIVE)
[2024-05-10 10:30] LABS: HEMATOCRIT 32.9 % (39.0-50.0); HEMOGLOBIN 10.6 g/dl (14.0-18.0)
[2024-05-10 10:33] LABS: URINE SQUAMOUS EPITHELIAL CELL MODERATE EPI/hpf (0-FEW)
== END 2024-05-10 11:57 | disposition home health service (06) ==
LOC: ED 10:18 → ED-I 14:20
PROVIDERS: Emergency Medicine; ADMIT Student in an Organized Health Care Education/Training Program; ATTEND Student in an Organized Health Care Education/Training Program
DX: K76.82 Hepatic encephalopathy (principal); C22.0 Liver cell carcinoma; E87.20 Acidosis, unspecified; I12.9 Hypertensive chronic kidney disease with stage 1 through stage 4 chronic kidney disease, or unspecified chronic kidney disease; E11.22 Type 2 diabetes mellitus with diabetic chronic kidney disease; N18.9 Chronic kidney disease, unspecified; I25.10 Atherosclerotic heart disease of native coronary artery without angina pectoris; E72.20 Disorder of urea cycle metabolism, unspecified; Z79.4 Long term (current) use of insulin; Z95.5 Presence of coronary angioplasty implant and graft

== ENCOUNTER 2024-06-26 10:56 | Emergency (ER) | payer MEDICARE, OTHER ==
[~2024-06-26] VITALS: Ht 180.3 cm; Wt 99.0 kg
[2024-06-26] VITALS (16 sets, daily range): BP systolic 80–110; BP diastolic 32–65
[~2024-06-26 10:56] MED LIST changes: +OXYCODONE5 M1 PO
[2024-06-26 11:23] LABS: BASO% 0.5 % (0-3); EOS% 0.5 % (0-8); HEMATOCRIT 27.7 % (39.0-50.0); HEMOGLOBIN 8.9 g/dl (14.0-18.0); IMMATURE GRANULOCYTES 0.8 % (0.0-5.0); MEAN CELL VOLUME 94.5 fL CALC (80.0-100.0); MEAN CORPUSCULAR HGB 30.4 pG CALC (26.0-32.0); MEAN CORPUSCULAR HGB CONC 32.1 g/dL CAL (32.0-36.0); MONO% 8.7 % (2-13); NEUT# 3.19 thou/uL (1.82-7.42); NEUT% 86.5 % (42-76); RED BLOOD COUNT 2.93 mill/uL (4.70-6.10); RED CELL DISTRI WIDTH 16.9 % (11.5-15.5)
[2024-06-26 11:41] LABS: INTERNATIONAL NORMALIZED RATIO 1.6 RATIO (0.7-1.3)
[2024-06-26 11:43] LABS: BILIRUBIN, TOTAL 3.3 mg/dL (0.2-1.3); CREATININE 1.9 mg/dL (0.7-1.3); POTASSIUM 4.3 mmol/l (3.5-5.1); TOTAL PROTEIN 5.3 g/dL (6.3-8.2)
[2024-06-26 11:46] LABS: PROTHROMBIN TIME 15.2 SECONDS (9.0-12.5)
[2024-06-26] MEDS ORDERED: PIPERACILLIN Sodium-Tazobactam 3.375 GM in SODIUM CHLORIDE 0.9% 100 ML IV ONE (11:50)
[2024-06-26] MEDS ORDERED: SODIUM CHLORIDE 0.9% 1,000 ML IV ONE ×2 (11:50)
[2024-06-26] MEDS ORDERED: BUMETANIDE 1 MG/4 ML VIAL IV ONE (14:20)
== END 2024-06-26 15:32 | disposition home or self-care (01) ==
LOC: ED 10:56
PROVIDERS: Emergency Medicine
DX: R41.82 Altered mental status, unspecified (principal); E87.1 Hypo-osmolality and hyponatremia; K76.82 Hepatic encephalopathy; K59.00 Constipation, unspecified; C22.9 Malignant neoplasm of liver, not specified as primary or secondary; I12.9 Hypertensive chronic kidney disease with stage 1 through stage 4 chronic kidney disease, or unspecified chronic kidney disease; E11.22 Type 2 diabetes mellitus with diabetic chronic kidney disease; N18.9 Chronic kidney disease, unspecified; I25.10 Atherosclerotic heart disease of native coronary artery without angina pectoris; Z79.4 Long term (current) use of insulin